=== PATIENT | male | born 1945 | race Caucasian/White ===

== ENCOUNTER 2018-08-09 09:52 | Inpatient (IN) | payer MEDICAID ==
[~2018-08-09] VITALS: Ht 167.6 cm; Wt 65.3 kg
[2018-08-09] VITALS (11 sets, daily range): BP systolic 106–138; BP diastolic 62–84; BMI 23.7
[2018-08-09 10:52] LABS: HEMATOCRIT 37.5 % (42.0-54.0); HEMOGLOBIN 12.8 g/dL (13.5-17.5); MCH 32.1 pg (26.0-34.0); MCHC 34.1 g/dL (31.0-37.0); MEAN PLATELET VOLUME 11.4 fL (7.4-10.4); PLATELET COUNT 113 10x3/uL (130-400); RBC 3.99 10x6/uL (4.20-6.10); RDW 13.6 % (11.5-14.5); WBC 22.4 10x3/uL (4.8-10.8)
[2018-08-09 11:11] LABS: EOSINOPHILS 1 % (0-7); LYMPHOCYTES 1 % (15-50); MONOCYTES 5 % (2-11); NEUTROPHILS 73 % (40-80)
[2018-08-09 11:12] LABS: ALBUMIN 2.8 g/dL (3.4-5.0); ANION GAP 18.6 mmol/L (8-16); BILIRUBIN - TOTAL 5.15 mg/dL (0.2-1.3); CALCIUM 7.6 mg/dL (8.5-10.1); CARBON DIOXIDE 19.8 mmol/L (21.0-32.0); CREATININE - SERUM 1.9 mg/dL (0.6-1.3); POTASSIUM - SERUM 3.4 mmol/L (3.5-5.1); PROTEIN - SERUM 6.2 g/dL (6.4-8.2)
[2018-08-09 11:14] LABS: PLATELET ESTIMATE DECREASED
--- NOTE | 2018-08-09 13:45 | NUR ---
RECEIVED PATIENT FROM ER NURSE AT THIS TIME. HOOKED UP TO MONITOR AND TOOK VITALS. VSS. SLIGHTLY TACHYCARDIC. WILL CHECK ORDERS AND CONTINUE TO MONITOR
[2018-08-09] MEDS ORDERED: PROSCAR5 MG PO (14:25)
[2018-08-09] MEDS ORDERED: HYTRIN10 MG PO (14:28)
[2018-08-09] MEDS ORDERED: CARAFATE1 G PO (14:29)
[2018-08-09] MEDS ORDERED: OMEPRAZOLE20 M1 PO (14:30)
[2018-08-09] MEDS ORDERED: QUININE SULFAT324 MG PO (14:31)
--- NOTE | 2018-08-09 15:19 | MORECARE ---
CASE MANAGEMENT DISCHARGE SUMMARY PATIENT: MARY HARRIS UNIT: [id number] ADM DATE: 08/09/18 AGE: 73 : 45 SEX: M ROOM/BED: D.2306 AUTHOR: MICHELLE HINDS PHYSICIAN: REFERRING PHYSICIAN: RADHA BERNAL MD DATE OF SERVICE: 08/09/18 Discharge Plan Patient Name: MARY HARRIS Facility: [facility]:[place] : 1945 Planned Disposition: Court\Law Enforcement Anticipated Discharge Date: Discharge Date: Expected LOS: Initial Reviewer: [email or web address] Initial Review Date: 08/09/2018 Generated: 08/09/18 4:18 pm DCP- Discharge Planning Updated by [email or web address]: Elysia Gibson on 08/09/18 2:[address] Patient is a prisoner with [facility]. Patient is currently in bed with guards at bedside. Patient will return to correctional facility upon discharge. CM will continue to follow and assist as needed with discharge planning / needs. Patient Name: MARY HARRIS Page [phone] at 1519 All edits/amendments must be made on the electronic document DICTATION DATE: 08/09/181517 BEHAVIORAL SPECIALIST: ION 08/09/181517 RPT#: [id number] DC DATE: STATUS: ADM IN [facility] [address] [place] [address] END OF REPORT
--- NOTE | 2018-08-09 16:47 | NUR ---
OFFERED MOUTH SWABS TO PATIENT FOR DRY MOUTH SINCE NPO. VSS. IN ROOM WITH GUARD.
--- NOTE | 2018-08-09 18:00 | NUR ---
PATIENT RESTING IN BED WITH STABLE VS ON 2 L O2 VIA NC. GUARD IN ROOM. ADMNISTERED RX FOR PAIN AND NAUSEA. WILL CONTINEU TO MONITOR.
--- NOTE | 2018-08-09 19:50 | NUR ---
RECEIVED CARE OF PT, ASSESSMENT PER FLOWSHEET. PT ALERT AND ORIENTED, GUARD AT BEDSIDE, BS HYPO X 4, MILD TENDERNESS TO PALP, PPP, HR ST ON CM, ANKLE CUFF NOTED TO RT LEG. DENIES ANY NEEDS AT THIS TIME, WILL MONITOR.
--- NOTE | 2018-08-09 21:10 | NUR ---
GUARD REMAINS PRESENT AT BEDSIDE, PT WATCHING TV IN NO APPARENT DISTRESS, VSS.
--- NOTE | 2018-08-09 23:30 | NUR ---
REASSESSMENT PER FLOWSHEET, NO ACUTE CHANGES NOTED. PT ABLE TO REPOSITION SELF, VSS, GUARD AT BEDSIDE.
[2018-08-10] VITALS (11 sets, daily range): BP systolic 98–143; BP diastolic 58–81; BMI 25.4
--- NOTE | 2018-08-10 01:02 | NUR ---
PT RESTING WITH EYES CLOSED, GUARD AT BEDSIDE, VSS.
--- NOTE | 2018-08-10 03:30 | NUR ---
REASSESSMENT PER FLOWSHEET, NO ACUTE CHANGES NOTED AT THIS TIME, VSS, DENIES PAIN, WILL CONT POC.
[2018-08-10 04:15] LABS: ALBUMIN 2.3 g/dL (3.4-5.0); ANION GAP 16.1 mmol/L (8-16); BILIRUBIN - TOTAL 3.92 mg/dL (0.2-1.3); CARBON DIOXIDE 21.3 mmol/L (21.0-32.0); POTASSIUM - SERUM 3.4 mmol/L (3.5-5.1); PROTEIN - SERUM 4.9 g/dL (6.4-8.2)
[2018-08-10 04:17] LABS: CALCIUM 6.9 mg/dL (8.5-10.1); CREATININE - SERUM 1.2 mg/dL (0.6-1.3)
[2018-08-10 05:02] LABS: BASOPHILS 0 % (0-2); EOSINOPHILS 1.1 % (0-7); HEMATOCRIT 34.8 % (42.0-54.0); HEMOGLOBIN 11.7 g/dL (13.5-17.5); IMMATURE GRANULOCYTES 0.4 % (0-5); LYMPHOCYTES 6.5 % (15-50); MCH 31.9 pg (26.0-34.0); MCHC 33.6 g/dL (31.0-37.0); MCV 94.8 fL (80.0-100.0); MEAN PLATELET VOLUME 11.6 fL (7.4-10.4); MONOCYTES 2.5 % (2-11); NEUTROPHILS 89.5 % (40-80); PLATELET COUNT 85 10x3/uL (130-400); RBC 3.67 10x6/uL (4.20-6.10); RDW 14.2 % (11.5-14.5); WBC 12.6 10x3/uL (4.8-10.8)
--- NOTE | 2018-08-10 07:29 | NUR ---
UP IN BED AWAKE AT THIS TIME. NO ACUTE DISTRESS NOTED. PT ALERT AND ORIENTED. USES URINAL FOR VOID. CALL LIGHT IN REACH. WILL CONTINUE PLAN OF CARE.
[2018-08-10 08:23] LABS: LIPASE 637 U/L (73-393)
[2018-08-10 08:24] LABS: AMYLASE - SERUM 145 U/L (25-115)
--- NOTE | 2018-08-10 09:29 | NUR ---
PER DR BERNAL AND HOMA PORTILLO FOR PT TO TRANSFER TO FLOOR.
--- NOTE | 2018-08-10 11:28 | NUR ---
UP IN BED WATCHING TV AT THIS TIME. NO ACUTE DISTRESS NOTED. PT ALERT AND ORIENTED. WILL CONTINUE PLAN OF CARE.
--- NOTE | 2018-08-10 13:00 | NUR ---
CIRCULAR RED SHAPED RASH TO LOWER EXTREMITIES THAT FOLLOWS UP TOWARDS PTS ABDOMEN NOTED AT THIS TIME. DR BERNAL NOTIFIED. ORDERS RECIEVED. NO ACUTE DISTRESS NOTED. WILL CONTINUE PLAN OF CARE.
--- NOTE | 2018-08-10 15:02 | NUR ---
CONTINENT BOWEL MOVEMENT AT THIS TIME TO BEDSIDE TOILET. MEDIUM BROWN LIQUID. PT PERFORED OWN NAKUL CARE AND TRANSFERRED TO AND FROM TOILET VIA STAND BY ASSIST. NO ACUTE DISTRESS NOTED. WILL CONTINUE PLAN OF CARE.
--- NOTE | 2018-08-10 15:09 | NUR ---
WILL ADMIN LOTRIMIN AND FLUCONAZOLE WHEN RECIEVE FROM PHARMACY.
[2018-08-10 16:23] LABS: APPEARANCE CLEAR (CLEAR); BILIRUBIN NEGATIVE (NEGATIVE); COLOR YELLOW (YELLOW); GLUCOSE NEGATIVE (NEGATIVE); KETONE NEGATIVE (NEGATIVE); NITRITE NEGATIVE (NEGATIVE); PROTEIN NEGATIVE (NEGATIVE); UROBILINOGEN NORMAL (NORMAL)
--- NOTE | 2018-08-10 17:16 | NUR ---
UP IN BED AT THIS TIME WATCHING TV. SOME C/O NAUSEA WITHOUT EMESIS. PRN ZOFRAN ADMIN. SUPPER TRAY GIVEN. WILL CONTINUE PLAN OF CARE.
--- NOTE | 2018-08-10 17:55 | NUR ---
REPORT CALLED FOR PT TO TRANSFER TO ROOM 2133. WILL TRANSFER PT SHORTLY.
--- NOTE | 2018-08-10 18:31 | NUR ---
TRANSFERRED TO ROOM 2133 AT THIS TIME VIA WHEELCHAIR ACCOMPANIED BY NURSING STAFF AND GUARD. TRANSFERRED WITH ALL PERSONAL ITEMS. NO ACUTE DISTRESS NOTED. NO FURTHER ACTIONS.
--- NOTE | 2018-08-10 20:25 | NUR ---
ADMIN MORPHINE 4MG IV PER REQUEST FOR C/O SHOULDER PAIN LEVEL 10 ON NUMBER SCALE. NO OTHER NEEDS VOICED. GUARD PRESENT IN ROOM.
--- NOTE | 2018-08-10 23:30 | NUR ---
RATES PAIN LEVEL AT 0. DENIES ANY NEEDS. UNDERSTANDS HE IS NPO AT MIDNIGHT.
[2018-08-11] VITALS: BP 120/69
--- NOTE | 2018-08-11 03:30 | NUR ---
RESTING QUIETLY WITH EYES CLOSED. RR EVEN U/L. NO S/S OF DISCOMFORT. GUARD PRESENT IN ROOM.
[2018-08-11 04:00] VITALS: BP 120/59
--- NOTE | 2018-08-11 05:53 | NUR ---
DENIES ANY NEEDS. STATED HE HAD BEEN TO BATHROOM TO VOID ONCE DURING THE NIGHT AND ALSO HAD A LARGE BM.
[2018-08-11 06:24] LABS: BASOPHILS 0.1 % (0-2); EOSINOPHILS 0.5 % (0-7); HEMATOCRIT 34.7 % (42.0-54.0); HEMOGLOBIN 11.6 g/dL (13.5-17.5); IMMATURE GRANULOCYTES 0.5 % (0-5); MCH 31.6 pg (26.0-34.0); MCHC 33.4 g/dL (31.0-37.0); MCV 94.6 fL (80.0-100.0); MEAN PLATELET VOLUME 12.6 fL (7.4-10.4); MONOCYTES 5.3 % (2-11); NEUTROPHILS 84.6 % (40-80); PLATELET COUNT 87 10x3/uL (130-400); RBC 3.67 10x6/uL (4.20-6.10); RDW 14.2 % (11.5-14.5); WBC 12.4 10x3/uL (4.8-10.8)
[2018-08-11 06:32] LABS: ALBUMIN 2.1 g/dL (3.4-5.0); ALKALINE PHOSPHATASE 181 U/L (46-116); ALT (SGPT) 121 U/L (10-68); BILIRUBIN - TOTAL 4.26 mg/dL (0.2-1.3); CALCIUM 7.5 mg/dL (8.5-10.1); CHLORIDE - SERUM 109 mmol/L (98-107); GLUCOSE 89 mg/dL (74-106); LIPASE 248 U/L (73-393); POTASSIUM - SERUM 3.8 mmol/L (3.5-5.1); PROTEIN - SERUM 5.6 g/dL (6.4-8.2); SODIUM 141 mmol/L (136-145); eGFR NON AFRICAN AMERICAN 78 mL/min (90-120)
[2018-08-11 06:36] LABS: AMYLASE - SERUM 65 U/L (25-115); CALC OSMOLALITY 281 mosm/kg (275-300); UREA NITROGEN 17 mg/dL (7-18)
--- NOTE | 2018-08-11 07:30 | NUR ---
RECEIVED A/A/OX4. RESTING QUIETLY WITH IV INFUSING WELL TO RIGHT AC WITHOUT ANY EDEMA OR S/S OF INFILTRATION. NO REQUESTS VOICED AND DENIES ANY PAIN AT PRESENT TIME. REMAINS NPO FOR US THIS AM AND IS AWARE OF THIS AND VERBALIZES UNDERSTANDING. BED IN LOW POSITION, SIDERAILS UP X 2 AND CALL LIGHT IN REACH. GUARD AT BEDSIDE. WILL CONTINUE POC.
[2018-08-11 08:02] LABS: PLATELET ESTIMATE DECREASED
[2018-08-11 08:33] VITALS: BP 138/69
--- NOTE | 2018-08-11 12:42 | NUR ---
RN ROUNDING DONE AND I AGREE WITH SYLVESTER SINGH LPN ASSESSMENT. PATIENT HAS TWO GUARDS IN ROOM AT THIS TIME.
[2018-08-11 13:26] VITALS: BP 157/82
[2018-08-11 17:01] VITALS: BP 146/79
[2018-08-11 20:00] VITALS: BP 146/71
[2018-08-12] VITALS (7 sets, daily range): BP systolic 105–153; BP diastolic 64–91
--- NOTE | 2018-08-12 05:01 | NUR ---
SITTING UP IN BED WITH HOB ELEVATED. EYES OPEN AND TV ON. DENIES ANY NEEDS NEEDS AT THIS TIME.
[2018-08-12 05:03] LABS: BASOPHILS 0.1 % (0-2); EOSINOPHILS 0.3 % (0-7); HEMATOCRIT 34.7 % (42.0-54.0); HEMOGLOBIN 11.8 g/dL (13.5-17.5); IMMATURE GRANULOCYTES 0.6 % (0-5); LYMPHOCYTES 8.5 % (15-50); MCH 31.9 pg (26.0-34.0); MCV 93.8 fL (80.0-100.0); MEAN PLATELET VOLUME 12.2 fL (7.4-10.4); MONOCYTES 9.3 % (2-11); NEUTROPHILS 81.2 % (40-80); PLATELET COUNT 93 10x3/uL (130-400); RDW 14.4 % (11.5-14.5); WBC 11.5 10x3/uL (4.8-10.8)
[2018-08-12 05:16] LABS: INR 1.22 (0.85-1.17); PROTIME 14.9 SECONDS (11.6-15.0)
[2018-08-12 05:24] LABS: ALKALINE PHOSPHATASE 219 U/L (46-116); ALT (SGPT) 93 U/L (10-68); CALC OSMOLALITY 276 mosm/kg (275-300); CALCIUM 7.5 mg/dL (8.5-10.1); CARBON DIOXIDE 19.8 mmol/L (21.0-32.0); CHLORIDE - SERUM 106 mmol/L (98-107); CREATININE - SERUM 0.8 mg/dL (0.6-1.3); GLUCOSE 83 mg/dL (74-106); PROTEIN - SERUM 5.5 g/dL (6.4-8.2); SODIUM 138 mmol/L (136-145); UREA NITROGEN 17 mg/dL (7-18); eGFR NON AFRICAN AMERICAN > 90 mL/min (90-120)
--- NOTE | 2018-08-12 11:46 | NUR ---
PT RESTING QUIETLY IN BED WAITING ON PROCEDURE. PT REMAINS NPO. DENIES ANY CURRENT PAIN OR NEEDS. CL IN REACH. GUARD AT BEDSIDE. WILL CTM.
--- NOTE | 2018-08-12 12:32 | NUR ---
GI TEAM CALLED TO PRE-OP PT. PRE-OP MEDICATIONS GIVEN AND PT IS COMPLETELY PREPPED AND READY TO GO. GUARD AT BEDSIDE. NO CURRENT NEEDS. CL IN REACH. WILL CTM.
--- NOTE | 2018-08-12 15:25 | NUR ---
POST DISCHARGE NOTE: DR MARIE CONSULTED FOR HIGH FLOW RATE REQUIRED TO MAINTAIN 94% SPO2. ABGS DRAWN, REVIEWED BY DR MARIE, NO FURTHER ORDERS RECEIVED.
--- NOTE | 2018-08-12 15:36 | NUR ---
PT BACK FROM PROCEDURE A&O SITTING UP IN BED RESTING QUIETLY. PT C/O BEING HUNGRY. CALLED SURGERY AND PT NEEDS TO STAY ON CLEAR LIQUID DIET R/T HIS PANCREASE ISSUES UNTIL SURGERY SUNDAY. PT HAS NEW PIV TO L.HAND AND OLD PIV INFILTRATED AND WAS REMOVED. VSS AND WILL BE MONITER PER POST PROCEDURE POLICY. PT IS NOW ON 7L HI FLOW NC WITH PULSE OX OF 96% WILL WEAN DOWN OFTEN SAFELY CAN BE DONE. PT HAS AN ORDER FOR TELEMETRY SINCE ADMISSION HOWEVER HAS NOT BEEN ON IT. HR TACHYCARDIC @[address] ON TELEMETRY ORDERED. NO IMMEDIATE NEEDS AT THIS TIME. CL IN REACH, BED IN LOWEST, SIDE RAILS X2 AND BUILT IN BED ALARM ON. GUARD AT BEDSIDE. WILL CTM.
--- NOTE | 2018-08-12 16:00 | NUR ---
VSS AND STILL BEING MONITERED. PTS O2 SAT 97% AND HE IS BREATHING WITHOUT ANY SOB OR ISSUES NOTED. WILL WEAN HIM DOWN TO 5L NC AND SEE HOW HE DOES. NO CURRENT NEEDS AT THIS TIME. CL IN REACH. WILL CTM.
--- NOTE | 2018-08-12 16:20 | NUR ---
WEANED PTS O2 DOWN TO 4LNC AND HIS RR ARE NONLABORED. WILL CTM.
--- NOTE | 2018-08-12 18:04 | NUR ---
PT NEEDING TO USE BR FOR BOWEL MOVEMENT. ASSISTED PT INTO BR AND PT IS HAVING A BM. LINENS SOILED WITH SCANT INCONTINENCE. CHANGED OUT COMPLETE BED CHANGE. PT VOICED THANKS. GUARD AT BEDSIDE NO CURRENT NEEDS.
--- NOTE | 2018-08-12 19:26 | NUR ---
RECIEVED UP IN BED WITH EYES OPEN AND TV ON. GUARD AT BEDSIDE. RIGHT ANKLE HAND CUFFED TO BEDRAIL. ALERT AND ORIENTED X4. IV SL OFF GOING STATED POTASSIUM 4.0. DENIES ANY NEEDS AT THIS TIME.
[2018-08-13] VITALS: BP 132/71
[2018-08-13 04:00] VITALS: BP 132/65
[2018-08-13 05:27] LABS: BASOPHILS 0.1 % (0-2); EOSINOPHILS 1.5 % (0-7); HEMATOCRIT 30.7 % (42.0-54.0); HEMOGLOBIN 10.4 g/dL (13.5-17.5); IMMATURE GRANULOCYTES 1.2 % (0-5); LYMPHOCYTES 18.8 % (15-50); MCH 31.4 pg (26.0-34.0); MCHC 33.9 g/dL (31.0-37.0); MCV 92.7 fL (80.0-100.0); MEAN PLATELET VOLUME 11.8 fL (7.4-10.4); NEUTROPHILS 66.4 % (40-80); PLATELET COUNT 89 10x3/uL (130-400); RBC 3.31 10x6/uL (4.20-6.10); RDW 14.5 % (11.5-14.5)
[2018-08-13 05:31] LABS: WBC 6.8 10x3/uL (4.8-10.8)
[2018-08-13 06:04] LABS: PLATELET ESTIMATE DECREASED
[2018-08-13 06:05] LABS: ALBUMIN 1.7 g/dL (3.4-5.0); ALKALINE PHOSPHATASE 189 U/L (46-116); ALT (SGPT) 63 U/L (10-68); BILIRUBIN - TOTAL 7.82 mg/dL (0.2-1.3); CALC OSMOLALITY 280 mosm/kg (275-300); CALCIUM 7.2 mg/dL (8.5-10.1); CARBON DIOXIDE 23.4 mmol/L (21.0-32.0); CHLORIDE - SERUM 108 mmol/L (98-107); CREATININE - SERUM 0.8 mg/dL (0.6-1.3); GLUCOSE 107 mg/dL (74-106); POTASSIUM - SERUM 3.1 mmol/L (3.5-5.1); SODIUM 140 mmol/L (136-145); UREA NITROGEN 19 mg/dL (7-18); eGFR NON AFRICAN AMERICAN > 90 mL/min (90-120)
[2018-08-13 07:33] LABS: HEPATITIS C ANTIBODY <0.1 S/CO RAT (0.0-0.9)
--- NOTE | 2018-08-13 09:01 | NUR ---
RESUMING PT CARE, PT LAYING IN BED WITH EYES CLOSED, RESPIRATIONS EVEN AND UNLABORED. DENIES PAIN OR NEEDS AT THIS TIME. HEAVY EQUIPMENT RENTAL ASSOCIATE AT BEDSIDE. CALL LIGHT IN REACH, WILL CONTINUE TO MONITOR AND FOLLOW PLAN OF CARE.
[2018-08-13 09:06] VITALS: BP 142/72
[2018-08-13 12:10] VITALS: Ht 167.6 cm; Wt 65.3 kg
--- NOTE | 2018-08-13 12:48 | NUR ---
NO NEEDS VOICED. CALL LIGHT IN REACH. ASSESMENT REVIEWED AND AGREE.
[2018-08-13 12:49] VITALS: BP 148/76
[2018-08-13 16:59] VITALS: BP 144/90
--- NOTE | 2018-08-13 19:11 | NUR ---
NEW ORDER PER DR GRIFFIN, RESTAURANT FRONT MANAGER OF MORPHINE. ORDER NOTED.
--- NOTE | 2018-08-13 19:14 | NUR ---
PT IN BED GUARD AT BEDSIDE. PT REQUESTS SOMETHING FOR PAIN. MORPHINE ROOM SERVICE CLERK ORDERED BY .
[2018-08-13 20:00] VITALS: BP 138/73
--- NOTE | 2018-08-13 22:20 | NUR ---
CALLED IN TO ROOM BY NURSE TO PT WHO IS IN BED HOLDING AN EMESIS BAG CONTAINING APPROX 200ML OF BRIGHT RED BLOOD. PT STATES "I FELT SICK AND THREW UP AND THIS IS WHAT CAME OUT." PAGED ORDERS GIVEN. MOBILE HOME SET UP PERSON NOTIFIED OF ORDER TO TRANSFER PT TO ICU.
[2018-08-14] VITALS (38 sets, daily range): BP systolic 100–157; BP diastolic 63–96
--- NOTE | 2018-08-14 00:10 | NUR ---
Received patient from [facility] II to 2302, patient vomited approx 200ml bright red blood and transfer to ICU per Gary. Patient AO x4, answers appropriately. S1/S2 noted NSR on telemetry with HR 85, rythmic and regular. Breathing is even/unlabored on 4L via NC with O2 sat 99%, lung sounds clear bilateral upper and mid with diminished lower. Abdomen is distended/firm with bowel sounds active x4, non-tender. Patient uses urinal jug without assist, passing flatus with no BM noted at this time. Slight weakness with all pulses palpable, cap refill < 3 sec with skin warm/dry. Morphine INSTRUCTION ASSISTANT PRINCIPAL in use for pain mgmt, denies further needs at this time. See flowsheet for details, all VSS and will continue to monitor.
[2018-08-14 00:24] LABS: HEMATOCRIT 32.7 % (42.0-54.0)
--- NOTE | 2018-08-14 00:40 | NUR ---
Protonix GTT initiated per orders, NGT placed L nare and connected to LIWS. 1000ml sterile saline lavage performed, dark brown fluid noted in collection cannister. Patient states slight nausea, no emesis noted at this time.
--- NOTE | 2018-08-14 01:45 | NUR ---
20g PIV intitiated L forearm, notified by lab 1 unit PRBC ready. PRBC infusing per orders, no immediate s/s of reaction. Patient denies pain or other needs, all VSS and will continue to monitor.
--- NOTE | 2018-08-14 03:10 | NUR ---
Reassessment completed per flowsheet, patient resting in bed with eyes closed. NGT L nare to LIWS, moderate brown secretions noted. S1/S2 noted NSR on telemetry with HR 86, rythmic and regular. Breathing is even/unlabored on room air with O2 sat 97%, lung sounds clear bilateral upper and mid with diminished lower. Abdomen is distended/soft with bowel sounds active x4, non-tender. 275ml concentrated yellow urine noted, no difficulties reported. Morphine STAGE DRIVER in use for pain mgmt, denies further needs at this time. See flowsheet for details, all VSS and will continue to monitor.
--- NOTE | 2018-08-14 03:45 | NUR ---
1 unit Platelets initiated, no s/s of reaction at this time. Will continue to monitor.
[2018-08-14 07:05] LABS: ALKALINE PHOSPHATASE 198 U/L (46-116); ALT (SGPT) 51 U/L (10-68); AMYLASE - SERUM 65 U/L (25-115); BILIRUBIN - TOTAL 6.06 mg/dL (0.2-1.3); CALC OSMOLALITY 279 mosm/kg (275-300); CALCIUM 7.9 mg/dL (8.5-10.1); CARBON DIOXIDE 23.9 mmol/L (21.0-32.0); CHLORIDE - SERUM 105 mmol/L (98-107); CREATININE - SERUM 0.8 mg/dL (0.6-1.3); GLUCOSE 88 mg/dL (74-106); LIPASE 405 U/L (73-393); POTASSIUM - SERUM 3.5 mmol/L (3.5-5.1); PROTEIN - SERUM 6.2 g/dL (6.4-8.2); SODIUM 140 mmol/L (136-145); UREA NITROGEN 19 mg/dL (7-18); eGFR NON AFRICAN AMERICAN > 90 mL/min (90-120)
[2018-08-14 07:06] LABS: ALBUMIN 2.3 g/dL (3.4-5.0)
[2018-08-14 07:13] LABS: HEMATOCRIT 31.8 % (42.0-54.0); HEMOGLOBIN 10.9 g/dL (13.5-17.5)
[2018-08-14 07:18] LABS: INR 1.13 (0.85-1.17)
--- NOTE | 2018-08-14 07:45 | NUR ---
SHIFT REPORT RECEIVED. AA&OX4. HAS NGT TO LEFT NARE ON LIWS. GREEN DRAINAGED NOTED FROM NGT. PT DENIES PAIN AT THIS TIME. ABDOMEN ROUND AND SOFT/NONTENDER. HAS L-HAND PIV WITH NS AT 10ML/HR, PROTONIX AT 10ML/HR AND MORPHINE DISPENSARY CLERK AT 0.5MG Q10MIN WITH 4MG/4HR LOCKOUT. SHIFT ASSESSMENT COMPLETED. USES URINAL. ABOUT 350ML OF CONCENTRATED URINE NOTED. SAFETY MEASURES IN PLACE. WILL CONTINUE TO MONITOR.
--- NOTE | 2018-08-14 08:47 | NUR ---
PREOP MEDS GIVEN AT THIS TIME.
--- NOTE | 2018-08-14 09:05 | NUR ---
PT NOT IN ROOM. TRANSFERRED TO OR
--- NOTE | 2018-08-14 10:00 | NUR ---
Nutrition follow-up: Pt now in ICU; in OR at this time for Lap Ana labs reviewed Pt has been NPO x several days NGT in place to LIWS Wt: 157# Will need nutrition support started after surgery if po diet unable to start. RDN following.
--- NOTE | 2018-08-14 11:42 | NUR ---
ARRIVED TO UNIT FROM RECOVERY ROOM VIA BED. ON 2L OF 02 VIA NC. BP 149/72, HR 89, RR 14, TEMP 98.2. ANSWERS QUESTIONS APPROPRIATELY. RATES PAIN 5/10. LAP MARIA LUISA INCISON X 4 ON ABDOMEN. STERI STRIPS IN PLACE. BELLY BUTTON INCISON HAS A SCANT AMOUNT OF BLOOD. DOES NOT APPEAR TO BE BLEEDING CONTINOUSLY. WILL CONTINUE TO MONITOR.
--- NOTE | 2018-08-14 11:54 | NUR ---
LIBERTY RN PAGED TO VERIFY IF PATIENT COULD BE PLACED BACK ON MORPHINE METAL BALER. DR. TAYLOR OKANDRY WITH METAL BALER TO BE RESTARTED IF NEEDED.
--- NOTE | 2018-08-14 12:35 | NUR ---
GI AT BEDSIDE. PLACED PT BACK ON LIWS PER GI AT THIS TIME. PT RATES PAIN 5/10. MORPHINE RADIO JOURNALIST RE-STARTED. PO MEDS ON HOLD PER DR. TAYLOR.
[2018-08-14 12:57] LABS: HEMATOCRIT 34.6 % (42.0-54.0); HEMOGLOBIN 11.6 g/dL (13.5-17.5)
--- NOTE | 2018-08-14 13:59 | NUR ---
PT ASKED FOR EMESIS BAG. HE'S CONCERN THAT HE MIGHT VOMIT AND GET IT ALL OVER HIMSELF. HIS NGT IS CONNECTED TO LIWS. NO BLEEDING NOTED AROUND LAP MARIA LUISA SITES. ABDOMEN FIRM. PT ASKED FOR WATER. EXPLAINED TO HIM THAT HE IS NPO PER DR. TAYLOR'S ORDERS. OFFERED ORAL SWABS. PT REFUSED. HE SAYS THAT THEY DON'T HELP. WILL CONTINUE TO MONITOR.
--- NOTE | 2018-08-14 14:30 | NUR ---
DR. THOMAS AT BEDSIDE. NGT CONTINUES ON LIWS. DARK GREEN DRAINAGE NOTED IN TUBE. NO FURHTER NEEDS. WILL CONTINUE TO MONITOR.
--- NOTE | 2018-08-14 15:17 | NUR ---
RE-ASSESSMENT COMPLETED. RATES PAIN 11/25. MORPHINE BOILER HOUSE OPERATOR IN PLACE. PT INSTRUCTED TO USE BOILER HOUSE OPERATOR FOR PAIN AND TO NOT LET PAIN GET TOO HIGH. LUNGS CLEAR. NGT TO LIWS. LAP MARIA LUISA INCISION WITHOUT SIGNS OF BLEEDING. HR SLIGHTLY TACHYCARDIC AT 101. WILL CONTINUE TO MONITOR.
--- NOTE | 2018-08-14 17:46 | NUR ---
PT CONTINUES TO ASK FOR WATER. NPO PER ORDERS. ORAL SWABS MOISTENED IN WATER GIVEN TO PT AT THIS TIME.
[2018-08-14 18:48] LABS: HEMATOCRIT 31.6 % (42.0-54.0); HEMOGLOBIN 10.8 g/dL (13.5-17.5)
[2018-08-15] VITALS (24 sets, daily range): BP systolic 90–133; BP diastolic 47–96
[2018-08-15 00:28] LABS: HEMATOCRIT 30.2 % (42.0-54.0); HEMOGLOBIN 10.3 g/dL (13.5-17.5)
[2018-08-15 06:19] LABS: HEMATOCRIT 29.4 % (42.0-54.0); HEMOGLOBIN 9.9 g/dL (13.5-17.5)
--- NOTE | 2018-08-15 07:34 | NUR ---
SHIFT REPORT RECEIVED. PT AWAKE AND ALERT. DENIES HAVING PAIN AT THIS TIME. ON MORPHINE BROKE HANDLER 0.5MG Q 10MIN WITH 10MG/4HR LOCKOUT. LUNGS CLEAR. ON ROOM AIR. BS HYPOACTIVE X 4 QUADRANTS. NO BLEEDING NOTED AT THIS TIME. NGT R-NARE TO LIWS. DARK GREEN DRAINAGE NOTED. PT STATES "I FEEL MUCH BETTER TODAY THAN I HAVE FELT IN DAYS. I AM JUST HUNGRY." HE REALLY WANTS WATER. CURRENTLY REMAINS NPO. SHIFT ASSESSMENT COMPLETED. SAFETY MEASURES IN PLACE. CALL LIGHT IN REACH. WILL CONTINUE TO MONITOR.
[2018-08-15 08:03] LABS: ALBUMIN 2.1 g/dL (3.4-5.0); BILIRUBIN - TOTAL 5.12 mg/dL (0.2-1.3); CALCIUM 7.4 mg/dL (8.5-10.1); CARBON DIOXIDE 18.7 mmol/L (21.0-32.0)
[2018-08-15 08:05] LABS: CREATININE - SERUM 1.1 mg/dL (0.6-1.3)
[2018-08-15 08:06] LABS: ANION GAP 17.3 mmol/L (8-16)
--- NOTE | 2018-08-15 09:42 | NUR ---
POTASSIUM LAB WAS 5.0. PT ON NS +40MEQ KCL AT 125ML/HR. CALLED DR. BERNAL TO NOTIFY HIM OF POTASSIUM. HE ORDER FLUIDS TO BE CHANGED TO NS AT 125ML/HR.
--- NOTE | 2018-08-15 09:56 | NUR ---
DR. ANN SPOKE WITH PT AND SPOUSE. VOICED HER CONCERN REGARDING TAKING HIS SEIZURE MEDICATION THAT HE TAKES PO. DR. ANN SAID TO GIVE PO MEDS. DR. ANN NOTIFIED THAT DR. TAYLOR WANTS PT TO BE STRICT NPO.
--- NOTE | 2018-08-15 11:00 | NUR ---
RE-ASSESSMENT COMPLETED. NO ACUTE CHANGES FROM PREVIOUS ASSESSMENT. NGT ON LIWS. NO FEVER NOTED. ABLE TO HAVE ICE CHIPS/ICE WATER PER DR. TAYLOR'S ORDERS.
[2018-08-15 12:50] LABS: HEMATOCRIT 27.1 % (42.0-54.0); HEMOGLOBIN 9.2 g/dL (13.5-17.5)
--- NOTE | 2018-08-15 13:02 | NUR ---
RESTING COMFORTABLY. ICE WATER PROVIDED.
--- NOTE | 2018-08-15 14:23 | NUR ---
VOIDED ABOUT 200 DARK SIERRA URINE. BED BATH PROVIDED. PT ABLE TO BATHE SELF WITH MINIMAL ASSISTANCE. COMPLETE LINEN CHANGE PROVIDED. NO FURTHER NEEDS AT THIS TIME. WILL CONTINUE TO MONITOR.
--- NOTE | 2018-08-15 16:22 | NUR ---
DR. THOMAS AT BEDSIDE. STATED THAT PT COULD BE ADVANCED TO CLEAR LIQUID DIET IF OK WITH DR. TAYLOR.
--- NOTE | 2018-08-15 16:29 | NUR ---
CALLED DR. TAYLOR TO MAKE SURE HE WAS OKAY WITH PATIENT HAVING A CLEAR LIQUID DIET. HE ORDERED TO REMOVE NGT AND START FULL LIQUID DIET AT THIS TIME.
--- NOTE | 2018-08-15 16:39 | NUR ---
NGT TUBE REMOVED PER ORDERS.
--- NOTE | 2018-08-15 17:00 | NUR ---
VOIDED 200ML DARK SIERRA URINE.
--- NOTE | 2018-08-15 18:28 | NUR ---
ATE 100% OF MEAL DENIES NAUSEA AT THIS TIME.
[2018-08-15 18:42] LABS: HEMATOCRIT 29.3 % (42.0-54.0); HEMOGLOBIN 9.6 g/dL (13.5-17.5)
[2018-08-16] VITALS (24 sets, daily range): BP systolic 104–161; BP diastolic 50–80
[2018-08-16 04:13] LABS: HEMATOCRIT 25.3 % (42.0-54.0); HEMOGLOBIN 8.3 g/dL (13.5-17.5)
--- NOTE | 2018-08-16 07:49 | NUR ---
DR. JARVIS TUBULAR RIVETER. NOTIFIED HER OF LOW H&H. SHE ORDERED ONE UNIT OF PRBC'S TO BE GIVEN.
[2018-08-16 07:57] LABS: ALKALINE PHOSPHATASE 162 U/L (46-116); ALT (SGPT) 76 U/L (10-68); BILIRUBIN - TOTAL 4.15 mg/dL (0.2-1.3); CALC OSMOLALITY 289 mosm/kg (275-300); CALCIUM 7.1 mg/dL (8.5-10.1); CARBON DIOXIDE 21.4 mmol/L (21.0-32.0); CHLORIDE - SERUM 110 mmol/L (98-107); GLUCOSE 92 mg/dL (74-106); POTASSIUM - SERUM 4.6 mmol/L (3.5-5.1); PROTEIN - SERUM 5.6 g/dL (6.4-8.2); SODIUM 142 mmol/L (136-145); UREA NITROGEN 31 mg/dL (7-18); eGFR NON AFRICAN AMERICAN 78 mL/min (90-120)
--- NOTE | 2018-08-16 09:56 | NUR ---
Nutrition follow-up: Pt was advanced to full liquids and was tolerating; pt now NPO for EGD later today Labs reviewed Wt: 166# RDN following.
--- NOTE | 2018-08-16 10:14 | NUR ---
SUPPOSITORY GIVEN PER ORDERS. PT IRRITATED. NOT WANTING TO WEAR BLOOD PRESSURE CUFF. DECREASED BP INTERVAL ON MONITOR. EMPTIED URINAL AT THIS TIME 250ML. WILL CONTINUE TO MONITOR.
--- NOTE | 2018-08-16 10:32 | NUR ---
MORPHINE ADMITTED ATTORNEYS DC'D AT THIS TIME PER ORDERS.
--- NOTE | 2018-08-16 10:44 | NUR ---
SPOKE WITH DR. BERNAL REGARDING UNIT OF BLOOD. INFORMED HIM THAT DR. TAYLOR DID NOT WANT UNIT TO BE GIVEN. DR. BERNAL SAID TO HOLD THE UNIT AND RECHEC H&H TOMORROW MORNING.
--- NOTE | 2018-08-16 11:00 | NUR ---
UP TO BEDSIDE COMMODE WITH MINIMAL ASSISTANCE. VOIDED ABOUT 300. SMALL AMOUNT OF DARK GREEN LOOSE STOOL NOTED. UNABLE TO COLLECT STOOL SAMPLE BECUASE IS WAS MIXED WITH URINE.
--- NOTE | 2018-08-16 11:29 | NUR ---
BED LUJAN PROVIDED. LARGE AMOUNT OF LOOSE BROWN STOOL WITH A COUPLE OF HARD STOOLS NOTED. NO BLEEDING NOTED. PERICARE PROVIDED. PARTIAL LINEN CHANGE PROVIDED AT THIS TIME. WILL CONTINUE TO MONITOR.
[2018-08-16 11:52] LABS: HEMATOCRIT 23.8 % (42.0-54.0); HEMOGLOBIN 7.8 g/dL (13.5-17.5)
--- NOTE | 2018-08-16 13:23 | NUR ---
PHONE CALL RECEIVED FROM [facility]. THEY WANTED TO KNOW THE PATIEN'T ADMITTING DIAGNOSIS. PT ALERT AND ORIENTED. NURSE ASKED IF HE WANTED [facility] TO HAVE THE INFORMATION. HE GRANTED PERMISSION TO GIVE PANKAJ WITH [facility] ADMITTING DIAGNOSIS.
--- NOTE | 2018-08-16 14:46 | NUR ---
EGD COMPLETED BY DR. JOHNSON. PT RESTING COMFORTABLY AT THIS TIME. EYES CLOSED. AROUSES TO VOICE. DENIES ANY NEEDS AT THIS TIME.
--- NOTE | 2018-08-16 17:33 | NUR ---
PT RESTING COMFORTABLY. DINNER TRAY DELIVERED. 750ML OF URINE EMPTIED IN URINAL. NO OTHER NEEDS AT THIS TIME. WILL CONTINUE TO MONITOR.
[2018-08-16 19:02] LABS: HEMATOCRIT 25.2 % (42.0-54.0); HEMOGLOBIN 8.3 g/dL (13.5-17.5)
[2018-08-17] VITALS (20 sets, daily range): BP systolic 109–146; BP diastolic 48–71
[2018-08-17 07:27] LABS: HEMATOCRIT 24.2 % (42.0-54.0)
--- NOTE | 2018-08-17 07:50 | NUR ---
UP IN BED EATING BREAKFAST AT THIS TIME. NO ACUTE DISTRESS NOTED. CALL LIGHT IN REACH. WILL CONTINUE PLAN OF CARE.
[2018-08-17 08:08] LABS: BASOPHILS 0.1 % (0-2); EOSINOPHILS 1.6 % (0-7); HEMATOCRIT 24.4 % (42.0-54.0); HEMOGLOBIN 7.9 g/dL (13.5-17.5); IMMATURE GRANULOCYTES 1.3 % (0-5); LYMPHOCYTES 22.3 % (15-50); MCHC 32.4 g/dL (31.0-37.0); MCV 95.7 fL (80.0-100.0); MEAN PLATELET VOLUME 11.6 fL (7.4-10.4); MONOCYTES 8.9 % (2-11); NEUTROPHILS 65.8 % (40-80); PLATELET COUNT 201 10x3/uL (130-400); RBC 2.55 10x6/uL (4.20-6.10); RDW 15.4 % (11.5-14.5); WBC 7.6 10x3/uL (4.8-10.8)
--- NOTE | 2018-08-17 09:22 | NUR ---
CONTINENT BOWEL MOVEMENT NOTED AT THIS TIME, LIQUID BROWN. PT PROVIDED OWN NAKUL CARE. TRANSFERRED VIA STAND BY ASSIST. NO ACUTE DISTRESS NOTED. WILL CONTINUE PLAN OF CARE.
--- NOTE | 2018-08-17 09:49 | NUR ---
PER SURGEON, OKAY TO FOLLOW PARAMETERS PLACED BY GI. NO ACUTE DISTRESS NOTED. WILL CONTINUE PLAN OF CARE.
[2018-08-17 09:54] LABS: ALBUMIN 1.8 g/dL (3.4-5.0); ALKALINE PHOSPHATASE 147 U/L (46-116); ALT (SGPT) 60 U/L (10-68); BILIRUBIN - TOTAL 3.75 mg/dL (0.2-1.3); CARBON DIOXIDE 20.5 mmol/L (21.0-32.0); CHLORIDE - SERUM 105 mmol/L (98-107); GLUCOSE 87 mg/dL (74-106); SODIUM 136 mmol/L (136-145)
[2018-08-17 09:55] LABS: CALC OSMOLALITY 271 mosm/kg (275-300); CALCIUM 6.7 mg/dL (8.5-10.1); CREATININE - SERUM 0.7 mg/dL (0.6-1.3); POTASSIUM - SERUM 3.8 mmol/L (3.5-5.1); UREA NITROGEN 15 mg/dL (7-18); eGFR NON AFRICAN AMERICAN > 90 mL/min (90-120)
--- NOTE | 2018-08-17 11:49 | NUR ---
LYING IN BED WATCHING TV AT THIS TIME. NO ACUTE DISTRESS NOTED. WILL CONTINUE PLAN OF CARE.
--- NOTE | 2018-08-17 13:36 | NUR ---
CONTINENT BOWEL MOVEMENT NOTED AT THIS TIME VIA BEDSIDE TOILET, SMALL BROWN LIQUID. PT PROVIDED OWN NAKUL CARE. NO ACUTE DISTRESS NOTED. WILL CONTINUE PLAN OF CARE.
--- NOTE | 2018-08-17 13:39 | NUR ---
CRITICAL CALCIUM LEVEL CALLED TO DR BERNAL, STATED WILL RECHECK LEVEL TOMORROW. ALSO CLARIFIED WITH PHYSICIAN REGARDING BLOOD, HE STATED THAT THE ONE UNIT OF BLOOD WAS SUFFICIENT FOR TODAY AND WILL RECHECK LEVELS TOMORROW.
[2018-08-17 13:59] LABS: HEMOGLOBIN 9.3 g/dL (13.5-17.5)
--- NOTE | 2018-08-17 15:19 | NUR ---
LYING IN BED RESTING AT THIS TIME. NO ACUTE DISTRESS NOTED. RESPIRATIONS STEADY AND UNLABORED. PT REPOSITIONS SELF INDEPENDENTLY. WILL CONTINUE PLAN OF CARE.
--- NOTE | 2018-08-17 17:29 | NUR ---
LYING IN BED RESTING AT THIS TIME. NO ACUTE DISTRESS NOTED. RESPIRATIONS STEADY AND UNLABORED RATE. AWAKENS EASILY WHEN SPOKEN TO. DENIES ANY NEEDS. WILL CONTINUE PLAN OF CARE.
--- NOTE | 2018-08-17 18:07 | NUR ---
PT DECLINED BED BATH STATING, "I'M TOO TIRED, MAYBE LATER." NO ACUTE DISTRESS NOTED. WILL CONTINUE PLAN OF CARE.
--- NOTE | 2018-08-17 18:39 | NUR ---
PER DR JARVIS; WILL CHANGE SERIAL H&H TO Q12H. AND TO KEEP PARAMETERS OF IF BELOW 27 GIVE 1 U PRBC AND BELOW 25 GIVE 2 U PRBC. WILL CONTINUE PLAN OF CARE.
--- NOTE | 2018-08-17 19:00 | NUR ---
PT IN BED IN LOW FOWLERS POSITION. ALERT AND ORIENTED X4. RESPIRATIONS EVEN AND UNLABORED. VITAL SIGNS STABLE AND AFEBRILE.NO VISUAL CUES OF DISTRESS NOTED. DENIES ANY OTHER NEEDS AT THIS TIME. BED LOW. SIDE RAILS UP X2. CALL LIGHT IN REACH. WILL CONTINUE TO MONITOR.
[2018-08-17 20:07] LABS: HEMATOCRIT 28.1 % (42.0-54.0); HEMOGLOBIN 9.3 g/dL (13.5-17.5)
[2018-08-18 03:00] VITALS: BP 142/71
[2018-08-18 03:39] LABS: BASOPHILS 0.1 % (0-2); EOSINOPHILS 0.8 % (0-7); HEMATOCRIT 28.1 % (42.0-54.0); HEMOGLOBIN 9.3 g/dL (13.5-17.5); IMMATURE GRANULOCYTES 2.6 % (0-5); LYMPHOCYTES 18.4 % (15-50); MCH 30.7 pg (26.0-34.0); MCHC 33.1 g/dL (31.0-37.0); MEAN PLATELET VOLUME 11.3 fL (7.4-10.4); MONOCYTES 8.6 % (2-11); NEUTROPHILS 69.5 % (40-80); RBC 3.03 10x6/uL (4.20-6.10); RDW 16.1 % (11.5-14.5); WBC 7.8 10x3/uL (4.8-10.8)
[2018-08-18 04:09] LABS: ALKALINE PHOSPHATASE 150 U/L (46-116); ALT (SGPT) 58 U/L (10-68); AMYLASE - SERUM 114 U/L (25-115); CARBON DIOXIDE 21.2 mmol/L (21.0-32.0); CHLORIDE - SERUM 102 mmol/L (98-107); CREATININE - SERUM 0.6 mg/dL (0.6-1.3); GLUCOSE 87 mg/dL (74-106); LIPASE 1110 U/L (73-393); PROTEIN - SERUM 5.1 g/dL (6.4-8.2); SODIUM 126 mmol/L (136-145); eGFR NON AFRICAN AMERICAN > 90 mL/min (90-120)
[2018-08-18 04:11] LABS: MCV 92.7 fL (80.0-100.0); PLATELET COUNT 243 10x3/uL (130-400)
[2018-08-18 04:12] LABS: CALC OSMOLALITY 250 mosm/kg (275-300); POTASSIUM - SERUM 3.2 mmol/L (3.5-5.1); UREA NITROGEN 11 mg/dL (7-18)
[2018-08-18 07:00] VITALS: BP 142/71
--- NOTE | 2018-08-18 08:46 | NUR ---
FINISHED 2 UNITS PRBCS @ 0600. TOLERATED WELL. 08/18/18 VITALS IN PAPER CHART. NO SIGNS OF AHTR.
--- NOTE | 2018-08-18 08:49 | NUR ---
WILL ADMIN PANCREASE WHEN RECIEVE FROM PHARMACY.
[2018-08-18 11:00] VITALS: BP 136/60
--- NOTE | 2018-08-18 11:32 | NUR ---
NOTED PT TO TRANSFER TO ROOM 1202, REPORT CALLED TO RECIEVING NURSE. WILL TRANSFER PT SHORTLY.
--- NOTE | 2018-08-18 11:50 | NUR ---
PT TRANSFERRED TO ROOM 1202 AT THIS TIME VIA WHEELCHAIR ACCOMPANIED BY HOSPITAL STAFF AND GUARD. NO ACUTE DISTRESS NOTED. NO FUTTHER ACTIONS.
--- NOTE | 2018-08-18 12:16 | NUR ---
PATIENT RESTING IN BED, CUFFED BY HIS LEFT LEG TO END OF BED. GUARD AT THE BEDSIDE. PATIENT DENIES PAIN, HE IS WEARING GLASSES, ON ROOM AIR. LARGE BRUISE NOTED TO THE LATERAL RIGHT SIDE OF ABD AREA, 4 SMALL INCISIONS WITH STERI STRIPS NOTED TO ABD, ALL CDI. NO IVF FLUIDS INFUSING.
--- NOTE | 2018-08-18 12:55 | NUR ---
CALLED AND REQUESTED IVF FOR THE PATIENT, SPOKE TO RYAN
[2018-08-18 13:34] VITALS: BP 146/61
--- NOTE | 2018-08-18 14:19 | NUR ---
CALLED AND SPOKE TO SHAWN IN THE PHARMACY, REQUESTING AGAIN THE IVF FOR THE PATIENT, STRESSING THE FACT THE PATIENT IS NPO AND NEEDING THE IVF
--- NOTE | 2018-08-18 14:20 | NUR ---
INFORMED THE PATIENT AND THE GUARD OF THE FINDINGS OF CDIFF AND THE FACT THE PATIENT IS NOW IN ISOLATION. STRESSED THE POINT OF FREQUENT HAND WASHING AND WEARING PROTECTIVE GEAR
[2018-08-18 17:27] LABS: HEMATOCRIT 29.2 % (42.0-54.0); HEMOGLOBIN 9.6 g/dL (13.5-17.5)
--- NOTE | 2018-08-18 17:54 | NUR ---
CALLED AND REQUESTED A TELE MONITOR FOR THE PATIENT, SPOKE TO ROME
--- NOTE | 2018-08-18 19:38 | NUR ---
PATIENT RESTING IN BED WITH GUARD AT BS. PATIENT VOMITED 100ML. PATIENT STATES HE FEELS BETTER. PATIENT DENIES OTHER NEEDS AT THIS TIME. BED IN LOWEST POSITION AND CALL LIGHT WITHIN REACH. ENCOURAGED THE PATIENT TO CALL IF HE HAS NEEDS. WILL CONTINUE TO MONITOR.
[2018-08-18 20:00] VITALS: BP 140/61
--- NOTE | 2018-08-18 22:42 | NUR ---
PATIENT RESTING IN BED WITH NO S/S OF DISTRESS. ADMINISTERED MEDS PER ORDERS. PATIENT DENIES OTHER NEEDS AT THIS TIME. BED IN LOWEST POSITION AND CALL LIGHT WITHIN REACH. ENCOURAGED THE PATIENT TO CALL IF HE HAS NEEDS. WILL CONTINUE TO MONITOR.
[2018-08-19] VITALS: BP 134/95
--- NOTE | 2018-08-19 00:57 | NUR ---
PATIENT C/O OF VOMITING AND PAIN. ADMINISTERED ZOFRAN AND MORPHINE PER ORDERS.
[2018-08-19 04:00] VITALS: BP 127/65
--- NOTE | 2018-08-19 07:05 | NUR ---
PT RESTING IN BED, EYES OPEN. PT ALERT AND ORIENTED. GUARD AT BEDSIDE. CONTACT PRECAUTIONS FOR CDIFF. PT ON ELECTROLYTE PROTOCOL. IV TO LEFT FOREARM, PROCAL INFUSING @ 50ML/HR. SITE PATENT WITHOUT REDNESS OR SWELLING. PT DAILY WEIGHT, WEIGHS 156 LBS. PT C/O HICCUPS. NO C/O PAIN. NO S/S OF AUCTE DISTRESS NOTED. PT DENIES ANYTHING FURTHER AT THIS TIME. CALL LIGHT IN REACH. WILL CONTINUE TO MONITOR.
[2018-08-19 08:04] LABS: ALBUMIN 2.1 g/dL (3.4-5.0); ALKALINE PHOSPHATASE 153 U/L (46-116); ALT (SGPT) 60 U/L (10-68); AMYLASE - SERUM 126 U/L (25-115); BILIRUBIN - TOTAL 3.22 mg/dL (0.2-1.3); CALC OSMOLALITY 269 mosm/kg (275-300); CARBON DIOXIDE 21.8 mmol/L (21.0-32.0); CHLORIDE - SERUM 102 mmol/L (98-107); CREATININE - SERUM 0.7 mg/dL (0.6-1.3); GLUCOSE 107 mg/dL (74-106); LIPASE 875 U/L (73-393); MAGNESIUM - SERUM 2.1 mg/dL (1.8-2.4); POTASSIUM - SERUM 4.1 mmol/L (3.5-5.1); PROTEIN - SERUM 5.1 g/dL (6.4-8.2); SODIUM 135 mmol/L (136-145); UREA NITROGEN 13 mg/dL (7-18); eGFR NON AFRICAN AMERICAN > 90 mL/min (90-120)
[2018-08-19 08:10] VITALS: BP 121/61
[2018-08-19 08:14] LABS: HEMATOCRIT 30.3 % (42.0-54.0); HEMOGLOBIN 9.8 g/dL (13.5-17.5); MCH 30.7 pg (26.0-34.0); MCHC 32.3 g/dL (31.0-37.0); MEAN PLATELET VOLUME 12.7 fL (7.4-10.4); RBC 3.19 10x6/uL (4.20-6.10); RDW 16.4 % (11.5-14.5); WBC 7.2 10x3/uL (4.8-10.8)
[2018-08-19 08:16] LABS: PLATELET COUNT 134 10x3/uL (130-400)
[2018-08-19 08:49] LABS: CRENATED CELLS OCC; LYMPHOCYTES 20 % (15-50); MONOCYTES 13 % (2-11); NEUTROPHILS 65 % (40-80); PHOSPHOROUS 1.5 mg/dL (2.5-4.9); PLATELET ESTIMATE NORMAL
--- NOTE | 2018-08-19 09:39 | NUR ---
ALERT AND ORIENTED X4. RESTING IN BED. GUARD AT BEDSIDE. ABDOMINAL INCISIONS CLEAN AND DRY. NO SCDs. LOVENOX ON HOLD DUE TO RISK FOR BLEEDING POST OP. VITALS STABLE. AGREE WITH 4 H [employer] SHIFT ASSESSMENT. CONTINUE PLAN OF CARE AND SAFETY PRECAUTIONS.
[2018-08-19 16:15] VITALS: BP 117/62
--- NOTE | 2018-08-19 18:28 | NUR ---
PT RESTING IN BED, EYES OPEN. GUARD AT BEDSIDE. NO C/O PAIN. NO S/S OF ACUTE DISTRESS NOTED. CALL LIGHT IN REACH. WILL CONTINUE TO MONITOR. PT DENIES ANYTHING FURTHER AT THIS TIME.
--- NOTE | 2018-08-19 19:19 | NUR ---
PATIENT RESTING IN BED WITH NO S/S OF DISTRESS. GUARD AT BEDSIDE. EMPTIED 375ML FROM URINAL. PATIENT DENIES OTHER NEEDS AT THIS TIME. BED IN LOWEST POSITION AND CALL LIGHT WITHIN REACH. ENCOURAGED THE PATIENT TO CALL IF HE HAS NEEDS. WILL CONTINUE TO MONITOR.
[2018-08-19 20:00] VITALS: BP 120/89
[2018-08-20 01:00] VITALS: BP 121/54
[2018-08-20 05:00] VITALS: BP 138/67
--- NOTE | 2018-08-20 07:05 | NUR ---
PT RESTING IN BED, EYES CLOSED. RESPIRATIONS EVEN AND UNLABORED. PT ALERT AND ORIENTED. NO C/O PAIN. NO S/S OF ACUTE DISTRESS NOTED. PT ON ENTERIC PRECAUTIONS D/T CDIFF. GUARD AT BEDSIDE. ON ELECTROLYTE PROTOCOL. IV TO LEFT FOREARM, PROCAL INFUSING @ 50ML/HR. SITE PATENT WITHOUT REDNESS OR SWELLING. PHOSPHORUS LEVEL 1.7, FOLLOWING ELECTROLYTE PROTOCOL. PT DENIES ANYTHING FURTHER AT THIS TIME. CALL LIGHT IN REACH. WILL CONTINUE TO MONITOR.
[2018-08-20 07:20] LABS: BASOPHILS 0.1 % (0-2); EOSINOPHILS 1.2 % (0-7); HEMATOCRIT 30.1 % (42.0-54.0); HEMOGLOBIN 9.8 g/dL (13.5-17.5); IMMATURE GRANULOCYTES 1.2 % (0-5); LYMPHOCYTES 20.4 % (15-50); MCH 30.4 pg (26.0-34.0); MCHC 32.6 g/dL (31.0-37.0); MCV 93.5 fL (80.0-100.0); MEAN PLATELET VOLUME 11.3 fL (7.4-10.4); MONOCYTES 14.5 % (2-11); NEUTROPHILS 62.6 % (40-80); RBC 3.22 10x6/uL (4.20-6.10); RDW 16.3 % (11.5-14.5); WBC 7.4 10x3/uL (4.8-10.8)
[2018-08-20 07:32] LABS: PLATELET COUNT 295 10x3/uL (130-400)
[2018-08-20 07:44] LABS: ALBUMIN 1.9 g/dL (3.4-5.0); ALKALINE PHOSPHATASE 135 U/L (46-116); ALT (SGPT) 50 U/L (10-68); AMYLASE - SERUM 147 U/L (25-115); BILIRUBIN - TOTAL 2.76 mg/dL (0.2-1.3); CALC OSMOLALITY 270 mosm/kg (275-300); CALCIUM 7.2 mg/dL (8.5-10.1); CARBON DIOXIDE 23.6 mmol/L (21.0-32.0); CHLORIDE - SERUM 102 mmol/L (98-107); CREATININE - SERUM 0.8 mg/dL (0.6-1.3); GLUCOSE 106 mg/dL (74-106); LIPASE 923 U/L (73-393); MAGNESIUM - SERUM 2.1 mg/dL (1.8-2.4); PHOSPHOROUS 1.7 mg/dL (2.5-4.9); POTASSIUM - SERUM 3.8 mmol/L (3.5-5.1); PROTEIN - SERUM 5.3 g/dL (6.4-8.2); SODIUM 135 mmol/L (136-145); UREA NITROGEN 15 mg/dL (7-18); eGFR NON AFRICAN AMERICAN > 90 mL/min (90-120)
[2018-08-20 07:59] VITALS: BP 117/58
[2018-08-20 11:50] VITALS: BP 115/64
--- NOTE | 2018-08-20 15:08 | MORECARE ---
CASE MANAGEMENT DISCHARGE SUMMARY PATIENT: MARY HARRIS UNIT: [id number] ADM DATE: 08/09/18 AGE: 73 : 45 SEX: M ROOM/BED: D.1202 AUTHOR: MICHELLE HINDS PHYSICIAN: REFERRING PHYSICIAN: RADHA BERNAL MD DATE OF SERVICE: 08/20/18 Discharge Plan Patient Name: MARY HARRIS Facility: [facility]:[place] : 1945 Planned Disposition: Court\Law Enforcement Anticipated Discharge Date: Discharge Date: Expected LOS: Initial Reviewer: [email or web address] Initial Review Date: 08/09/2018 Generated: 08/20/18 4:08 pm DCP- Discharge Planning Updated by [email or web address]: Elysia Gibson on 08/09/18 2:[address] Patient is a prisoner with [facility]. Patient is currently in bed with guards at bedside. Patient will return to correctional facility upon discharge. CM will continue to follow and assist as needed with discharge planning / needs. External Providers External Provider: OTHER-OTHER Next Contact Date: Service Request Date: Service Type: Resolution: Reviewer: Comments: Last DP export: 08/09/18 2:18 p Patient Name: MARY HARRIS Page [phone] at 1508 All edits/amendments must be made on the electronic document DICTATION DATE: 08/20/18 1508 DECATOR OPERATOR: ION 08/20/18 1508 RPT#: [id number] DC DATE: STATUS: ADM IN [facility] [address] [place] [address] END OF REPORT
[2018-08-20 16:46] VITALS: BP 114/55
--- NOTE | 2018-08-20 18:46 | NUR ---
PT RESTING IN BED, GUARD AT BEDSIDE. NO C/O PAIN. NO S/S OF ACUTE DISTRESS NOTED. PT DENIES ANYTHING FURTHER AT THIS TIME. CALL LIGHT IN REACH. WILL CONTINUE TO MONITOR.
--- NOTE | 2018-08-20 19:42 | NUR ---
PATIENT RESTING IN BED WITH GUARD AT BEDSIDE. NO S/S OF DISTRESS. DENIES NEEDS AT THIS TIME. BED IN LOWEST POSITION AND CALL LIGHT WITHIN REACH. ENCOURAGED THE PATIENT TO CALL IF HE HAS NEEDS. WILL CONTINUE TO MONITOR.
[2018-08-20 20:00] VITALS: BP 151/56
[2018-08-21] VITALS: BP 107/53
[2018-08-21 04:00] VITALS: BP 108/52
[2018-08-21 07:15] LABS: ALBUMIN 1.9 g/dL (3.4-5.0); ALKALINE PHOSPHATASE 123 U/L (46-116); ALT (SGPT) 44 U/L (10-68); AMYLASE - SERUM 143 U/L (25-115); BILIRUBIN - TOTAL 2.44 mg/dL (0.2-1.3); CALC OSMOLALITY 270 mosm/kg (275-300); CALCIUM 7.3 mg/dL (8.5-10.1); CARBON DIOXIDE 23.9 mmol/L (21.0-32.0); CHLORIDE - SERUM 103 mmol/L (98-107); CREATININE - SERUM 0.7 mg/dL (0.6-1.3); GLUCOSE 89 mg/dL (74-106); LIPASE 758 U/L (73-393); MAGNESIUM - SERUM 1.9 mg/dL (1.8-2.4); PHOSPHOROUS 1.8 mg/dL (2.5-4.9); POTASSIUM - SERUM 3.5 mmol/L (3.5-5.1); PROTEIN - SERUM 5.2 g/dL (6.4-8.2); SODIUM 136 mmol/L (136-145); UREA NITROGEN 13 mg/dL (7-18); eGFR NON AFRICAN AMERICAN > 90 mL/min (90-120)
[2018-08-21 07:18] LABS: BASOPHILS 0.3 % (0-2); EOSINOPHILS 1.4 % (0-7); HEMATOCRIT 29.8 % (42.0-54.0); HEMOGLOBIN 9.7 g/dL (13.5-17.5); IMMATURE GRANULOCYTES 1.2 % (0-5); LYMPHOCYTES 27.9 % (15-50); MCH 30.5 pg (26.0-34.0); MCHC 32.6 g/dL (31.0-37.0); MCV 93.7 fL (80.0-100.0); MEAN PLATELET VOLUME 11.6 fL (7.4-10.4); MONOCYTES 14.2 % (2-11); PLATELET COUNT 348 10x3/uL (130-400); RBC 3.18 10x6/uL (4.20-6.10); RDW 16.2 % (11.5-14.5); WBC 6.6 10x3/uL (4.8-10.8)
--- NOTE | 2018-08-21 08:03 | NUR ---
AM MEDS GIVEN AT THIS TIME. PT A/O X4, RESP EVEN AND NONLABORED ON RA. RT HAND INFUSING PROCALAMINE AT 50CC/HR. PT CUFFED TO BED, CAMERA OPERATOR AT BEDSIDE, PT DENIES ANY NEEDS AT THIS TIME. CALL LIGHT IN REACH, NAD NOTED, WILL CONTINUE TO MONITOR.
[2018-08-21 09:27] VITALS: BP 127/64
--- NOTE | 2018-08-21 10:33 | NUR ---
Pt started on clear liquid diet yesterday and it is documented that pt consumed 100% of all meals Weight: 157lb. Pt has lost a significant amount of weight since admit and has not had much nutrition. REC: If not medically feasible to advance diet today, may want to consider TPN to better meet pts nutrition needs RD following
[2018-08-21 12:03] VITALS: BP 119/58; BP 136/68
[2018-08-21 17:43] VITALS: BP 118/58
--- NOTE | 2018-08-21 18:00 | NUR ---
FLEET ENEMA DONE AT THIS TIME. PT TOLERATED PROCEDURE WELL. NEW BOTTLE OF PROCALAMINE HUNG. URINAL EMPTIED, PT DENEIS ANY NEEDS AT THIS TIME. CALL LIGHT IN REACH. MANAGER SHAREPOINT AT BEDSIDE, NAD NOTED.
--- NOTE | 2018-08-21 19:45 | NUR ---
RESUMING PT CARE. PT IS ALERT LAYING IN BED WITH NO C/O VOICED AT THIS TIME. RESPIRATIONS EVEN AND UNLABORED. GUARD IS AT THE BEDSIDE. BED IN LOW POSITION WITH CALL LIGHT IN REACH. SIDE RAILS UP X 2. WILL CONTINUE TO MONITOR PT AND FOLLOW PLAN OF CARE.
--- NOTE | 2018-08-21 20:00 | NUR ---
RESUMING PT CARE. PT IS ALERT LAYING IN BED WATCHING TV. NO C/O VOICED AT THIS TIME. PT HAS A LEFT PIC LINE THAT IS SALINE LOCK AND IS ON 5 LITERS OF O2 NASAL CANNULA. BED IN LOW POSITION WITH CALL LIGHT IN REACH. WILL CONTINUE TO MONITOR PT AND FOLLOW PLAN OF CARE.
[2018-08-21 20:46] VITALS: BP 130/54
[2018-08-22] VITALS (8 sets, daily range): BP systolic 113–141; BP diastolic 51–61
--- NOTE | 2018-08-22 03:14 | NUR ---
I AGREE WITH ROAST MASTER ASSESSMENT THIS SHIFT
--- NOTE | 2018-08-22 03:18 | NUR ---
PT C/O LEG PAIN. NORCO 5/325 ONE TABLET PO GIVEN PER AUG. BED IN LOW POSITION WITH CALL LIGHT IN REACH. WILL CONTINUE TO MONITOR PT AND FOLLOW PLAN OF CARE.
--- NOTE | 2018-08-22 05:46 | NUR ---
PT LAYING IN BED RESTING COMFORTABLY WITH EYES CLOSED. NO S/S OF DISTRESS. GUARD IS AT BEDSIDE. BED IN LOW POSITION WITH CALL LIGHT IN REACH. SIDE RAILS UP X 2. WILL CONTINUE TO MONITOR PT AND FOLLOW PLAN OF CARE.
--- NOTE | 2018-08-22 07:00 | NUR ---
INITIAL ROUNDING, PATIENT AWAKE AND RESTING IN BED, GUARD AT THE BEDSIDE, PATIENT CUFFED TO THE BEDRAIL ON THE LEFT SIDE BY HIS ANKLE. PATIENT DENIES PAIN, REPORTS HE WANTS TO SHAVE AND SHOWER TODAY, THE GUARD STATED THIS IS OK. INSTRUCTED THE PATIENT TO CALL AFTER HE SHAVED AT THE SINK AND HE WOULD BE ASSISTED IN THE SHOWER AND LINENS CHANGED. PATIENT IS VERY UNHAPPY HAVING A LIQUID AND PLANS TO SPEAK TO THE DOCTOR, HE STATES "I AM TIRED OF BEING STARVED TO ". INSTRUCTED THE GUARD OF THE PATIENTS ISOLATION STATUS, AND ASKED THAT HE PUT A GOWN AND GLOVES ON, INSTRUCTED BOTH THE PATIENT AND GUARD ON FREQUENT HANDWASHING, AND HAND GEL.
[2018-08-22 08:57] LABS: BASOPHILS 0.2 % (0-2); EOSINOPHILS 1.3 % (0-7); HEMATOCRIT 30.9 % (42.0-54.0); HEMOGLOBIN 9.9 g/dL (13.5-17.5); LYMPHOCYTES 21.5 % (15-50); MCH 30.1 pg (26.0-34.0); MCV 93.9 fL (80.0-100.0); MEAN PLATELET VOLUME 10.7 fL (7.4-10.4); MONOCYTES 16.9 % (2-11); NEUTROPHILS 59.1 % (40-80); PLATELET COUNT 352 10x3/uL (130-400); RBC 3.29 10x6/uL (4.20-6.10); RDW 15.9 % (11.5-14.5)
[2018-08-22 09:12] LABS: ALBUMIN 2.1 g/dL (3.4-5.0); ALKALINE PHOSPHATASE 124 U/L (46-116); ALT (SGPT) 46 U/L (10-68); AMYLASE - SERUM 126 U/L (25-115); BILIRUBIN - TOTAL 2.37 mg/dL (0.2-1.3); CALC OSMOLALITY 277 mosm/kg (275-300); CALCIUM 7.1 mg/dL (8.5-10.1); CARBON DIOXIDE 27.9 mmol/L (21.0-32.0); CHLORIDE - SERUM 104 mmol/L (98-107); CREATININE - SERUM 0.8 mg/dL (0.6-1.3); GLUCOSE 107 mg/dL (74-106); LIPASE 663 U/L (73-393); POTASSIUM - SERUM 3.6 mmol/L (3.5-5.1); PROTEIN - SERUM 5.4 g/dL (6.4-8.2); SODIUM 139 mmol/L (136-145); UREA NITROGEN 12 mg/dL (7-18); eGFR NON AFRICAN AMERICAN > 90 mL/min (90-120)
--- NOTE | 2018-08-22 19:45 | NUR ---
RESUMING PT CARE. PT IS ALERT LAYING IN BED WITH NO C/O VOICED AT THIS TIME. GUARD IS AT THE BEDSIDE. NO S/S OF DISTRESS. BED IN LOW POSITION WITH CALL LIGHT IN REACH. SIDE RAILS UP X2. WILL CONTINUE TO MONITOR PT AND FOLLOW PLAN OF CARE.
--- NOTE | 2018-08-23 00:07 | NUR ---
THE PATIENT IS AWAKE AND WATCHING TELEVISION. ESCORT IS PRESENT.
--- NOTE | 2018-08-23 03:24 | NUR ---
PT LAYING IN BED RESTING COMFORTABLY WITH EYES CLOSED. RESPITATIONS EVEN AAND UNLABORED. NO S/S OF DISTRESS, BED IN LOW POSITION WITH CALL LIGHT IN REACH. SIDE RAILS UP X 2. GUARD AT BEDSIDE. WILL CONTINUE TO FOLLOW PLAN OF CARE.
[2018-08-23 04:30] VITALS: BP 126/59
--- NOTE | 2018-08-23 07:18 | NUR ---
INITIAL ROUNDING, THE PATIENT IS RESTING WITH EYES CLOSED, TV AND LIGHTS ON, GUARD AT BEDSIDE
[2018-08-23 07:37] LABS: ALBUMIN 2.1 g/dL (3.4-5.0); ALKALINE PHOSPHATASE 119 U/L (46-116); ALT (SGPT) 44 U/L (10-68); AMYLASE - SERUM 131 U/L (25-115); BILIRUBIN - TOTAL 1.94 mg/dL (0.2-1.3); CALC OSMOLALITY 273 mosm/kg (275-300); CALCIUM 7.3 mg/dL (8.5-10.1); CARBON DIOXIDE 23.5 mmol/L (21.0-32.0); CHLORIDE - SERUM 104 mmol/L (98-107); CREATININE - SERUM 0.8 mg/dL (0.6-1.3); GLUCOSE 108 mg/dL (74-106); LIPASE 696 U/L (73-393); POTASSIUM - SERUM 3.5 mmol/L (3.5-5.1); PROTEIN - SERUM 5.4 g/dL (6.4-8.2); SODIUM 137 mmol/L (136-145); UREA NITROGEN 11 mg/dL (7-18); eGFR NON AFRICAN AMERICAN > 90 mL/min (90-120)
[2018-08-23 07:39] VITALS: BP 117/52
[2018-08-23] MEDS ORDERED: HYTRIN5 MG PO (11:07)
[2018-08-23] MEDS ORDERED: Pancrease 5000,17,00 PO (11:08)
[2018-08-23] MEDS ORDERED: PEPCID PO (11:08)
[2018-08-23] MEDS ORDERED: FLORAJEN3 CAPS460 MG PO (11:09)
[2018-08-23] MEDS ORDERED: PROTONIX40 MG PO (11:10)
[2018-08-23 11:22] VITALS: BP 117/56
--- NOTE | 2018-08-23 11:22 | NUR ---
REMOVED THE 22G IV FROM THE RIGHT HAND, CATH TIP INTACT.
--- NOTE | 2018-08-23 13:24 | MORECARE ---
CASE MANAGEMENT DISCHARGE SUMMARY PATIENT: MARY HARRIS UNIT: [id number] ADM DATE: 08/09/18 AGE: 73 : 45 SEX: M ROOM/BED: D.1202 AUTHOR: MIHCELLE HINDS PHYSICIAN: REFERRING PHYSICIAN: RADHA ABREU MD DATE OF SERVICE: 08/23/18 Discharge Plan Patient Name: MARY HARRIS [facility] : 1945 Planned Disposition: Court\Law Enforcement Anticipated Discharge Date: Discharge Date: Expected LOS: Initial Reviewer: [email or web address] Initial Review Date: 08/09/2018 Generated: 08/23/18 2:23 pm Comments DCP- Discharge Planning Updated by [email or web address]: Krystin Randall on 08/23/18 12:[address] CM called and spoke with Dr. Abreu about need to do doc to doc call with Dr. Escalera at [facility] [phone]. Dr. Abreu stated he would call Dr. Escalera. CM called Binta Plata, flow nurse, to notify her. Left message with Jocelyn Morgan outsole caser. Patient ready for discharge from aspect. DCP- Discharge Planning Updated by [email or web address]: Elysia Covingtonr on 08/09/18 2:[address] Patient is a prisoner with [facility]. Patient is currently in bed with guards at bedside. Patient will return to correctional facility upon discharge. CM will continue to follow and assist as needed with discharge planning / needs. Last DP export: 08/20/18 2:08 pm Patient Name: MARY HARRIS Page [id number] at 1324 All edits/amendments must be made on the electronic document DICTATION DATE: 08/23/18 1323 TUNNEL KILN OPERATOR: ION 08/23/18 1323 RPT#: [id number] DC DATE: STATUS: ADM IN [facility] [address] [place] [address] END OF REPORT
--- NOTE | 2018-08-23 13:41 | NUR ---
CALLED REPORT TO [phone]. DOC TO DOC HAS BEEN DONE PER NURSING HOME ADMINISTRATOR. NURSE HANG STATES DOC TO DOC HAS NOT BEEN DONE. SHE ASKED THE DOCTOR BE CALLED AT [phone], DR ESPINOZA. CALLED NURSING HOME ADMINISTRATOR AT [phone] TO REPORT THIS INFORMATION, SHE IS LOOKING INTO THIS AND CALLING DR BERNAL BACK
--- NOTE | 2018-08-23 15:04 | NUR ---
CALLED AGAIN TO TRY TO GIVE REPORT, SPOKE TO JONH AND SHE TOOK MY NAME AND NUMBER AND STATED HE WOULD CALL BACK AFTER VERIFYING DOC TO DOC HAS BEEN DONE
--- NOTE | 2018-08-23 15:10 | NUR ---
CALLED AND GAVE REPORT TO JONH AT THE NURSING HOME, HE HAD NO QUESTIONS AND IS AWAITNG PATIENT ARRIVAL. DISCHARGE INSTRUCTIONS GIVEN TO THE GUARD TO TAKE BACK.
--- NOTE | 2018-08-23 15:18 | NUR ---
THE GUARD WAS INSTRUCTED TO CALL FOR TRANSPORT
--- NOTE | 2018-08-23 16:11 | NUR ---
PATIENT ASSISTED TO THE DOOR FOR DISCHARGE
--- NOTE | 2018-08-23 17:12 | MORECARE ---
CASE MANAGEMENT DISCHARGE SUMMARY PATIENT: MARY HARRIS UNIT: [id number] ADM DATE: 08/09/18 AGE: 73 : 45 SEX: M ROOM/BED: D.1202 AUTHOR: MICHELLE HINDS PHYSICIAN: REFERRING PHYSICIAN: RADHA ABREU MD DATE OF SERVICE: 08/23/18 Discharge Plan Patient Name: MARY HARRIS Facility: [facility]:[place] : 1945 Planned Disposition: Court\Law Enforcement Anticipated Discharge Date: Discharge Date: 08/23/2018 Expected LOS: Initial Reviewer: [email or web address] Initial Review Date: 08/09/2018 Generated: 08/23/18 6:12 pm Comments DCP- Discharge Planning Updated by [email or web address]: Krystin Randall on 08/23/18 12:[address] CM called and spoke with Dr. Abreu about need to do doc to doc call with Dr. Escalera at [facility] [phone]. Dr. Abreu stated he would call Dr. Escalera. CM called Binta Plata, marketing services coordinator, to notify her. Left message with Jocelyn Morgan vocational case manager. Patient ready for discharge from aspect. DCP- Discharge Planning Updated by [email or web address]: Elysia Gibson on 08/09/18 2:[address] Patient is a prisoner with [facility]. Patient is currently in bed with guards at bedside. Patient will return to correctional facility upon discharge. CM will continue to follow and assist as needed with discharge planning / needs. Last DP export: 08/23/18 12:24 pm Patient Name: MARY HARRIS Page [phone] at 1712 All edits/amendments must be made on the electronic document DICTATION DATE: 08/23/181710 FLEXOGRAPHIC PRESS OPERATOR: ION 08/23/181710 RPT#: [id number] DC DATE:08/23/18 STATUS: DIS IN [facility] [address] [place] [address] END OF REPORT
== END 2018-08-23 16:10 | DRG 417 ==
LOC: D.ER 09:52 → D.M2 13:24 → D.M3 13:24 → D.M2 13:24 → D.ICU 13:24 → D.M2 08-10 18:28 → D.ICU 08-13 23:26 → D.M3 08-18 12:08 → D.SDCHOLD 08-21 20:04 → D.M3 08-21 20:07
PROVIDERS: Family Medicine; Internal Medicine Gastroenterology; Surgery; ADMIT Family Medicine; ATTEND Family Medicine
PROC: 0F7C8ZZ Dilation of Ampulla of Vater, Via Natural or Artificial Opening Endoscopic (ICD-10-PCS; 2018-08-12)
PROC: 0FCC8ZZ Extirpation of Matter from Ampulla of Vater, Via Natural or Artificial Opening Endoscopic (ICD-10-PCS; 2018-08-12)
PROC: 0FT44ZZ Resection of Gallbladder, Percutaneous Endoscopic Approach (ICD-10-PCS; principal; 2018-08-14 08:15)
PROC: 0DJ08ZZ Inspection of Upper Intestinal Tract, Via Natural or Artificial Opening Endoscopic (ICD-10-PCS; 2018-08-16)
DX: K85.10 Biliary acute pancreatitis without necrosis or infection (principal); J18.1 Lobar pneumonia, unspecified organism; K22.11 Ulcer of esophagus with bleeding; N17.9 Acute kidney failure, unspecified; R78.81 Bacteremia; K83.09 Other cholangitis; E87.1 Hypo-osmolality and hyponatremia; A04.72 Enterocolitis due to Clostridium difficile, not specified as recurrent; E86.0 Dehydration; N40.0 Benign prostatic hyperplasia without lower urinary tract symptoms; B36.9 Superficial mycosis, unspecified; B96.20 Unspecified Escherichia coli [E. coli] as the cause of diseases classified elsewhere; K44.9 Diaphragmatic hernia without obstruction or gangrene; K21.0 Gastro-esophageal reflux disease with esophagitis; D64.9 Anemia, unspecified; K25.9 Gastric ulcer, unspecified as acute or chronic, without hemorrhage or perforation

== ENCOUNTER 2019-04-29 05:12 | Day surgery (SDC) | payer OTHER ==
[~2019-04-29] VITALS: Ht 167.6 cm; Wt 67.7 kg
[~2019-04-29 05:12] MED LIST: CARAFATE1 G PO; FLORAJEN3 CAPS460 MG PO; HYTRIN10 MG PO; HYTRIN5 MG PO; OMEPRAZOLE20 M1 PO; PEPCID PO; PROSCAR5 MG PO; PROTONIX40 MG PO; Pancrease 5000,17,00 PO; QUININE SULFAT324 MG PO
[2019-04-29 06:13] LABS: HEMATOCRIT 40.9 % (42.0-54.0); HEMOGLOBIN 13.4 g/dL (13.5-17.5); MCH 32.6 pg (26.0-34.0); MCHC 32.8 g/dL (31.0-37.0); MCV 99.5 fL (80.0-100.0); RBC 4.11 10x6/uL (4.20-6.10); RDW 12.6 % (11.5-14.5); WBC 5.7 10x3/uL (4.8-10.8)
[2019-04-29] MEDS ORDERED: OMEPRAZOLE20 M1 PO (06:17)
[2019-04-29] MEDS ORDERED: QUININE SULFAT324 MG PO (06:18)
[2019-04-29] MEDS ORDERED: SINEMET 25-1001 EAC1 PO (06:19)
[2019-04-29 06:29] VITALS: BP 132/70; Ht 167.6 cm; Wt 67.7 kg
--- NOTE | 2019-04-29 11:27 | NUR ---
125 IV REMOVED AND PRESSURE HELD
--- NOTE | 2019-04-29 14:12 | OP ---
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 Large hiatal hernia. PROCEDURES: Esophagogastroduodenoscopy with antral and distal esophageal biopsies. SURGEON: Karel Griffin MD POWERHOUSE ENGINEER: None. BLOOD LOSS: Minimal. ANESTHESIA: IV sedation with topical, oral anesthesia. COMPLICATIONS: None. The risks, possible complications and alternatives to the procedure were explained to the patient. He elects to proceed. ENDOSCOPIC COURSE: The patient was conveyed to the endoscopy suite electively on 04/29/2019. IV sedation was induced by the anesthesia staff. A bite block was inserted. A gastroscope was inserted into the mouth. It was advanced easily into the hypopharynx. The esophagus was easily intubated as were the stomach and duodenum. Upon withdrawal, retroflexed and angulus views were obtained. Antral biopsies were obtained. Distal esophageal biopsies were obtained at the Z line. The Z line was discontinuous indicating ongoing Trimble esophagus. The endoscope was then withdrawn under direct vision. I will see the patient on a p.r.n. basis. My plan is to await biopsies and I would like to perform another upper endoscopy with biopsies for surveillance in April of 2021. TRANSINT:[id number] Voice Confirmation ID: [id number] DOCUMENT ID: [id number] cc: BRENT Wray, Delta Unit KAREL GRIFFIN MD at 1412 CC: [id number] DICTATION DATE: 04/29/19 1106 AGENCY SALES DIRECTOR: 04/29/19 1113 [facility] 04/29/19 [place] [id number] [place] [id number]
--- NOTE | 2019-04-29 14:12 | HP ---
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 HISTORY OF PRESENT ILLNESS: The patient underwent EGD by me, which revealed Trimble esophagus. He is here for surveillance upper endoscopy with biopsies. Due to frailty, he is having the procedure performed in the hospital. PAST MEDICAL AND SURGICAL HISTORY: History of cholecystectomy, history of hernia repair, gastroesophageal reflux. HOME MEDICATIONS: Reviewed. ALLERGIES: AMOXICILLIN. SOCIAL HISTORY: Ex-smoker. REVIEW OF SYSTEMS: Negative for CVA or seizures. Negative for neurologic problems other than restless leg syndrome. PHYSICAL EXAMINATION: GENERAL: The patient does not appear acutely ill. He does not appear chronically ill. VITAL SIGNS: Reviewed. EARS: External ears appear normal. EYES: Extraocular movements are intact. NECK: Trachea is midline. CHEST: No intercostal retractions. PULMONARY: Nonlabored, no stridor. ABDOMEN: Nontender. 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 PLAN: Upper endoscopy with biopsies. TRANSINT:[id number] Voice Confirmation ID: [id number] DOCUMENT ID: [id number] cc: BRENT Wray Delta Unit MOUNIKA GRIFFIN MD at 1412 CC: [id number] DICTATION DATE: 04/29/19 1027 CIGARETTE EXAMINER: 04/29/19 1034 [facility] 04/29/19 [place] [address] [place] [address]
== END 2019-04-29 11:29 ==
LOC: D.OPS 05:12
PROVIDERS: Anesthesiology; ATTEND Surgery
DX: K22.70 Barrett's esophagus without dysplasia (principal); K44.9 Diaphragmatic hernia without obstruction or gangrene